=== PATIENT | male | born 1960 | race Hispanic/Latino ===

== ENCOUNTER 2016-07-27 14:21 | Emergency (ER) | payer OTHER ==
[~2016-07-27] VITALS: Ht 160 cm; Wt 68.2 kg
[2016-07-27 14:24] VITALS: BP 133/80; PULSE 68; RESP 16; O2SAT 96
--- NOTE | 2016-07-27 15:14 | ED.REPORT ---
HPI-Extremity Problem Lower Date of Service Jul 27, 2016 ED Provider: Phong Ruvalcaba MD 56 y/o male with no pertinent hx presents to the ED for right knee pain, onset after a fall yesterday around 1500. Pt struck his knee on the pavement upon falling. His pain is exacerbated when he walks or bends his knee. Pt reports no hx of surgery or injury on right knee. He took 3 Ibuprofen tablets yesterday and 2 tablets this morning, with little effect. Nursing Notes Stated Complaint: RIGHT KNEE INJURY L&I Chief Complaint: Extremity Trauma Nursing Notes Reviewed: Yes Allergies: Coded Allergies: No Known Allergies (Verified Allergy, Unknown, 07/27/16) No Active Prescriptions or Reported Meds General Time Seen by MD: 14:57 Chief Complaint Knee injury right Hx Obtained From: Patient Arrived By: Walk-in Onset Occurred: Yesterday Symptom Duration: Since onset Caused by: Fall on ground Location: : Knee right Quality: Painful Severity: Current: Mild Severity: Maximum: Mild Exacerbated by: Bending, Movement Recent Healthcare: No recent doctor visit Similar Sx Previous: No Past Medical History Past Medical History none reported Past Surgical History none reported Smoking History Current Every Day Smoker Social History Alcohol Use: Denies alcohol use Drug Use: Denies drug use Ambulatory Status Independent Review of Systems Musculoskeletal: Reports: Joint pain, Denies: Joint swelling Skin: Denies Bruising Complete sys rev & neg: except as marked. Physical Exam Initial Vital Signs Vital Signs (First) Date Time Temp Pulse Resp B/P Pulse Ox O2 Delivery O2 Flow Rate FiO2 07/27/16 14:24 36.7 68 16 133/80 96 Room Air Initial VS: Reviewed, Vital signs normal Head / Eyes: Atraumatic, Normocephalic, PERRL ENT: Mucous membranes moist, Conjunctiva normal, No scleral icterus Neck: Supple, Non-tender, Full range of motion Respiratory: Breath sounds normal, Clear to auscultation, No respiratory distress Cardiovascular: Regular rate & rhythm, Heart sounds normal, Intact distal pulses Abdomen / GI: Soft, Non-tender, No guarding, No rebound, No distention Upper Extremities: Vascular intact, Neuro intact, No swelling, No tenderness Skin: Warm, Dry, No cyanosis Neurologic: Alert, Oriented, Nonfocal Psychiatric: Mood/affect normal, Behavior normal, Normal thought content Lower Extremity / Pelvis / MS: Atraumatic, Full range of motion Superficial abrasion on right knee Ambulates but avoids putting weight on knee No obvious deformity of the knee No swelling, warmth or erythema Diffuse pain of knee No instability to valgus or varus forces No calf swelling or heaviness. Tenderness in medial joint space. Neurovascular intact distal to injury. Ankle / Foot: Atraumatic, Full range of motion Interpretation & Diagnostics X-Ray Interpretation Xray Interpretation: Impression: Normal X-Ray Ordered: Knee right Interpretation / Wet Read by: Wet read ED physician Re-Eval/Medical Decision Med Decision/Clinical Course 56 y/o male with no pertinent hx presents to the ED for right knee pain, onset after a fall yesterday around 1500. Pt struck his knee on the pavement upon falling. His pain is exacerbated when he walks or bends his knee. Pt reports no hx of surgery or injury on right knee. He took 3 Ibuprofen tablets yesterday and 2 tablets this morning, with little effect. Here in the emergency department the patient is afebrile, hemodynamically stable and in no apparent distress. Plain films of the right knee demonstrated no acute fracture or dislocation. He is able to ambulate on the affected extremity though it hurts to bend or put full weight on it. Examined his x-rays and definitely no evidence of occult fracture of the tibial plateau like cannot definitively rule this out. She is neurovascularly intact in the affected extremity. His pain was treated with intramuscular Toradol with good effect. He provided with a knee immobilizer and crutches. He will follow up with a primary care physician in the coming week plan for repeat x-rays and advanced imaging should he continue to have pain in his knee. Prior to discharge follow-up and return precautions were reviewed in detail with the patient who verbalized understanding and agreement with the plan. The patient was discharged in stable condition. Re-Evaluation/Progress : Time of Eval: 14:57 Re-Evaluation/Progress Note: Informed the pt of diagnosis and plan to discharge. Pt understood and agreed witht the plan. F/U and RTER instructions given. All questions answered. Counseled Regarding: Diagnosis, Lab results, Need for follow-up, When/why to return to ED Discharge & Departure Impression: Primary Impression: Right knee injury Encounter type: initial encounter Qualified Code: S89.91XA - Unspecified injury of right lower leg, initial encounter Additional Impression: Right knee pain Chronicity: acute Qualified Code: M25.561 - Pain in right knee Disposition: Home Discharge Condition All VS Reviewed: Yes Condition: Stable Patient Instructions: Crutch Instructions (ED) Additional Instructions: Thank you for seeking care at the emergency room. Our primary goal today in the ED was to evaluate you for any life-threatening conditions. Your evaluation was reassuring. There is no evidence of an acute fracture on your x-ray. Use the knee brace and crutches until your pain has improved. Continue to take ibuprofen as needed for your pain. You should follow-up with your primary doctor in the next week if your symptoms continue. You should return to the ED immediately if you develop increased pain, numbness , weakness or any other concerning signs or symptoms. Thank you for letting us partake in your care today. Silvia por buscar atencin en la eulogio de emergencias. Nuestra meta principal hoy en el ED fue evaluarle para cualquier condicin que amenaza la fitz. Manley evaluacin fue tranquilizadora. No hay evidencia de paula fractura aguda en manley radiografa. Utilice la mueca y las muletas hasta que manley dolor haya natalie. Contine tomando ibuprofeno segn sea necesario para manley dolor. Usted debe hacer un seguimiento con manley mdico de cabecera en la prxima semana si carlene sntomas continan. Debe regresar inmediatamente al servicio de urgencias si desarrolla un mayor dolor, entumecimiento, debilidad o cualquier otro signo o sntoma relacionado. Silvia por dejarnos participar en manley cuidado hoy. Referrals: [facility], [facility] Scribe Attestation Portions of this note were transcribed by Joseph Martel and Lauren Enciso . I, personally performed the history, physical exam and medical decision-making;I reviewed and confirmed the accuracy of the information in the transcribed note. Signed by Joseph Martel and Trey Garcia. 07/27/16 [id number]. copies to: [facility] Phong Ruvalcaba MD Jul 27, 2016 15:14 Joseph Martel Jul 27, 2016 16:36 Lauren Enciso Jul 27, 2016 17:00
--- NOTE | 2016-07-27 16:51 | DRSVH ---
PROCEDURE: X-RAY RIGHT KNEE, THREE VIEWS ([id number]) INDICATIONS: fall at work TECHNIQUE: 3 views of the knee were acquired. COMPARISON: None. FINDINGS: Bones: No fractures or dislocations. No suspicious bony lesions. Soft tissues: There is a small joint effusion. No suspicious soft tissue calcifications. IMPRESSION: 1. No fracture or subluxation. Dictated by: Amaury Shane M.D. on 07/27/2016 at 16:47 Approved by: Amaury Shane M.D. on 07/27/2016 at 16:47
== END 2016-07-27 17:35 | disposition home or self-care (01) ==
LOC: SED 14:21
DX: S89.91XA Unspecified injury of right lower leg, initial encounter (principal); W01.0XXA Fall on same level from slipping, tripping and stumbling without subsequent striking against object, initial encounter; Y93.89 Activity, other specified; Y92.69 Other specified industrial and construction area as the place of occurrence of the external cause; Y99.0 Civilian activity done for income or pay; F17.200 Nicotine dependence, unspecified, uncomplicated
CPT/HCPCS: 73562; 96372; 99284; J1885